=== PATIENT | male | born 1940 | race Caucasian/White ===

== ENCOUNTER → 2020-08-21 | Day surgery (SDC) | payer MEDICARE, OTHER ==
[~2020-08-21] MED LIST: IBUPROFEN800 MG PO; PRINIVIL20 MG PO; ZOCOR40 MG PO
== END | disposition home or self-care (01) ==
LOC: FAS 10:23
DX: M16.11 Unilateral primary osteoarthritis, right hip (principal); M17.0 Bilateral primary osteoarthritis of knee; I10 Essential (primary) hypertension; E78.00 Pure hypercholesterolemia, unspecified; J43.9 Emphysema, unspecified; F17.200 Nicotine dependence, unspecified, uncomplicated; Z88.8 Allergy status to other drugs, medicaments and biological substances; Z79.1 Long term (current) use of non-steroidal anti-inflammatories (NSAID); Z79.899 Other long term (current) drug therapy
CPT/HCPCS: 76000; J1040; J2704; J7120; Q9967

== ENCOUNTER 2021-10-04 06:56 | Inpatient (IN) | payer MEDICARE, OTHER ==
[~2021-10-04] VITALS: Ht 175.3 cm; Wt 83.5 kg
[2021-10-04 08:27] LABS: BASOPHIL 2.5 % (0-2); EOSINOPHIL 5.3 % (0-7); HCT 26.8 % (42.0-52.0); LYMPHOCYTE 20.6 % (15-48); MCH 31.1 pg (25.0-31.0); MCHC 33.6 g/dL (32.0-36.0); MCV 92.7 fL (78.0-100.0); MONOCYTE 12.8 % (0-12); MPV 11.9 fL (6.0-9.5); NEUTROPHIL 57.7 % (41-80); NRBC 0; PLT 194 K/uL (150-400); RBC 2.89 M/uL (4.70-6.00); RDW 17.8 % (11.5-14.0); WBC 7.2 K/uL (4.0-10.5)
[2021-10-04 08:29] LABS: BILIRUBIN NEGATIVE (NEGATIVE); BLOOD NEGATIVE Ery/uL (NEGATIVE); CLARITY CLEAR (CLEAR); COLOR YELLOW (YELLOW); GLUCOSE (U) NORMAL (NORMAL); LEUKOCYTES NEGATIVE Leu/uL (NEGATIVE); NITRITE NEGATIVE (NEGATIVE); PROTEIN NEGATIVE (NEGATIVE); SPECIFIC GRAVITY 1.015 (1.001-1.030); UROBILINOGEN 0.2 mg/dL (0.2-1.0); pH 6.5 (5.0-9.0)
[2021-10-04 08:32] LABS: ALBUMIN 3.5 g/dL (3.4-5.0); BILIRUBIN - TOTAL 0.4 mg/dL (0.2-1.0); BUN/CREAT RATIO (CALC) 29.9 RATIO; CREATININE 0.87 mg/dL (0.67-1.17); GLOBULIN (CALCULATION) 2.4 g/dL; POTASSIUM 4.3 mmol/L (3.5-5.1); TOTAL PROTEIN 5.9 g/dL (6.4-8.2)
[2021-10-04 08:33] LABS: INR 1.15 (0.9-1.2); PROTHROMBIN TIME 14.1 SECONDS (11.8-13.4); PTT 26.4 SECONDS (24.4-34.7)
[2021-10-04] MEDS ORDERED: MELOXICAM15 MG PO (12:42)
[2021-10-05 07:00] LABS: INR 1.27 (0.9-1.2); PROTHROMBIN TIME 15.2 SECONDS (11.8-13.4)
[2021-10-05 07:02] LABS: HCT 21.5 % (42.0-52.0); MCH 30.4 pg (25.0-31.0); MCHC 32.6 g/dL (32.0-36.0); MCV 93.5 fL (78.0-100.0); MPV 11.2 fL (6.0-9.5); RBC 2.3 M/uL (4.70-6.00); WBC 6.6 K/uL (4.0-10.5)
[2021-10-05 07:21] LABS: IRON % SATURATION 74.3 %SAT (20-50)
[2021-10-05 07:39] LABS: BUN/CREAT RATIO (CALC) 27.4 RATIO; CREATININE 0.84 mg/dL (0.67-1.17); POTASSIUM 4.2 mmol/L (3.5-5.1)
[2021-10-05 14:11] LABS: HGB 6.8 g/dL (13.2-18.0)
[2021-10-06 06:09] LABS: HCT 24.2 % (42.0-52.0); HGB 8.1 g/dl (13.2-18.0); MCH 30.1 pg (25.0-31.0); MCHC 33.5 g/dL (32.0-36.0); RBC 2.69 M/uL (4.70-6.00); RDW 17.9 % (11.5-14.0); WBC 7.5 K/uL (4.0-10.5)
[2021-10-06 06:30] LABS: BUN/CREAT RATIO (CALC) 17.4 RATIO; CREATININE 0.86 mg/dL (0.67-1.17); POTASSIUM 4.1 mmol/L (3.5-5.1)
--- NOTE | 2021-10-06 23:51 | NUR ---
AT 2310 RN NOTIFIED OF UNWITNESSED FALL BY PATIENT. 231 PATIENT INTERVIWED AND PATIENT STATED HE FELL WHILE WALKING BACK FROM BATHROOM OUTSIDE BATHROOM DOOR. PATIENT STATED HE GOT DIZZY AND FELL. PATIENT DENIES PAIN. BODY AUDIT REVEALS NO BRUISING, REDNESS OR ABRASIONS. BLOOD SMEAR NOTED TO FLOOR OUTSIDE BATHROOM DOOR AND PATIENT STATED THAT WAS FROM HIS BOWEL. PATIENT IS ALERT AND ORIENTED. 231 FREDDY SAENZ NOTIFIED.
[2021-10-07 06:18] LABS: HCT 21.3 % (42.0-52.0); MCH 29.9 pg (25.0-31.0); MCHC 32.9 g/dL (32.0-36.0); MPV 11.6 fL (6.0-9.5); RBC 2.34 M/uL (4.70-6.00); RDW 17.7 % (11.5-14.0)
[2021-10-07 06:41] LABS: BUN/CREAT RATIO (CALC) 20.9 RATIO; CREATININE 0.91 mg/dL (0.67-1.17); POTASSIUM 3.8 mmol/L (3.5-5.1)
[2021-10-08 07:05] LABS: HCT 28.6 % (42.0-52.0); MCH 30.2 pg (25.0-31.0); MCHC 33.2 g/dL (32.0-36.0); MCV 90.8 fL (78.0-100.0); MPV 12.1 fL (6.0-9.5); RBC 3.15 M/uL (4.70-6.00); RDW 16.4 % (11.5-14.0)
[2021-10-08 07:07] LABS: HGB 9.5 g/dl (13.2-18.0); WBC 16.5 K/uL (4.0-10.5)
[2021-10-08 08:08] LABS: BUN/CREAT RATIO (CALC) 22.8 RATIO; CREATININE 0.92 mg/dL (0.67-1.17); POTASSIUM 4.1 mmol/L (3.5-5.1)
[2021-10-08] MEDS ORDERED: FEOSOL325 MG PO (08:18)
[2021-10-08] MEDS ORDERED: FOLIC ACID1 MG PO (08:18)
--- NOTE | 2021-10-08 09:25 | NUR ---
PT WILL D/C HOME WITH SPOUSE. PT. HAS A RW AND WC, BUT IS INDEPENDENT. AT THIS TIME HE HAS NOT NEEDS.
== END 2021-10-08 11:01 | disposition home or self-care (01) | DRG 378 ==
LOC: FER 06:56 → FMS 11:18
PROVIDERS: Emergency Medicine; Student in an Organized Health Care Education/Training Program; ADMIT Family Medicine
PROC: 30233M1 Transfusion of Nonautologous Plasma Cryoprecipitate into Peripheral Vein, Percutaneous Approach (ICD-10-PCS; principal; 2021-10-05)
PROC: 30233M1 Transfusion of Nonautologous Plasma Cryoprecipitate into Peripheral Vein, Percutaneous Approach (ICD-10-PCS; 2021-10-05)
PROC: 30233N1 Transfusion of Nonautologous Red Blood Cells into Peripheral Vein, Percutaneous Approach (ICD-10-PCS; 2021-10-07)
PROC: 0DBK8ZZ Excision of Ascending Colon, Via Natural or Artificial Opening Endoscopic (ICD-10-PCS; 2021-10-07)
PROC: 0DBL8ZZ Excision of Transverse Colon, Via Natural or Artificial Opening Endoscopic (ICD-10-PCS; 2021-10-07)
PROC: 0DBM8ZZ Excision of Descending Colon, Via Natural or Artificial Opening Endoscopic (ICD-10-PCS; 2021-10-07)
PROC: 0W3P8ZZ Control Bleeding in Gastrointestinal Tract, Via Natural or Artificial Opening Endoscopic (ICD-10-PCS; 2021-10-07)
PROC: 0DB78ZX Excision of Stomach, Pylorus, Via Natural or Artificial Opening Endoscopic, Diagnostic (ICD-10-PCS; 2021-10-07)
PROC: 30233N1 Transfusion of Nonautologous Red Blood Cells into Peripheral Vein, Percutaneous Approach (ICD-10-PCS; 2021-10-07 14:45)
DX: K57.31 Diverticulosis of large intestine without perforation or abscess with bleeding (principal); D62 Acute posthemorrhagic anemia; N17.9 Acute kidney failure, unspecified; Z20.822 Contact with and (suspected) exposure to COVID-19; K63.5 Polyp of colon; I12.9 Hypertensive chronic kidney disease with stage 1 through stage 4 chronic kidney disease, or unspecified chronic kidney disease; N18.2 Chronic kidney disease, stage 2 (mild); W19.XXXA Unspecified fall, initial encounter; Y92.231 Patient bathroom in hospital as the place of occurrence of the external cause; D69.6 Thrombocytopenia, unspecified; E78.5 Hyperlipidemia, unspecified; M17.0 Bilateral primary osteoarthritis of knee; K80.20 Calculus of gallbladder without cholecystitis without obstruction; N32.3 Diverticulum of bladder; Z79.899 Other long term (current) drug therapy; Z88.8 Allergy status to other drugs, medicaments and biological substances; Z98.890 Other specified postprocedural states; Z87.891 Personal history of nicotine dependence
CPT/HCPCS: 36415; 36430; 80048; 80053; 81003; 82607; 83540; 83550; 84145; 85018; 85025; 85610; 85730; 86850; 86900; 86901; 86922; 93005; 94010; 97162; 97165; C9113; G0378; J0171; J2250; J2354; J2405; J2704; J7030; J7120; P9016; Q9967; U0002